=== PATIENT | male | born 1975 | race Native Hawaiian/Other Pacific Islander ===

== ENCOUNTER 2023-04-12 00:12 | Inpatient (IN) | payer MEDICAID, OTHER ==
[~2023-04-12] VITALS: Ht 167.6 cm; Wt 68.0 kg
--- NOTE | 2023-04-12 00:25 | NUR ---
Not able to assess patients mental status. MD at bedside assessing patient.Per Rescue team, patient was reccently at a different hospital and was possibly treated for sepsis, possible on antibiotic therapy. RT at bedside setting up pt to vent and assessing status. Patient with no signs of distress, quadriplegic, on vent. O2 sats at 98% All safety precautions taken
[2023-04-12] MEDS ORDERED: IV NS 0.9% 1,000 ML BAG IV ONE (00:30)
[2023-04-12] MEDS ORDERED: VANCOMYCIN 1 GM in IV D5W 250 ML IV ONE (00:30)
[2023-04-12] MEDS ORDERED: PIPERACILLIN /TAZOBACTAM 3.375 G in IV D5W 50 ML IV ONE (00:30)
--- NOTE | 2023-04-12 00:39 | NUR ---
Vent; FIO2: 35%min., Flow 50 l/min., VT 350ml, RR 12, Flow: 50 l/min, PEEP 5 cmH20, Pmax 60 cmH2O
[2023-04-12] MEDS ORDERED: PIPERACI/TAZO 3.375GM/D5W 50ML PB IV ONE (00:41)
[2023-04-12] MEDS ORDERED: ACETAMINOPHEN 650 MG/20.3 ML UDC ONE (00:43)
[2023-04-12 00:44] LABS: BASOPHILS % (AUTO) 0.1 % (0.0-2.0); EOSINOPHILS % (AUTO) 4.3 % (0.0-6.0); HEMATOCRIT 35 % (39-51); HEMOGLOBIN 11.1 g/dL (13.5-17.5); LYMPHOCYTES % (AUTO) 13.8 % (20.0-44.0); MEAN CORPUSCULAR HGB CONC 32 g/dl (31.0-36.0); MEAN CORPUSCULAR VOLUME 87 fL (80-96); MONOCYTES # (AUTO) 1.3 K/uL (0.1-1.30); MONOCYTES % (AUTO) 5.9 % (2.0-12.0); NEUTROPHILS # (AUTO) 16.3 K/uL (1.8-8.9); NEUTROPHILS % (AUTO) 75.9 % (43.0-81.0); PLATELET COUNT (AUTO) 487 K/uL (150-450); RED BLOOD CELL COUNT(AUTO) 4.02 MIL/uL (4.5-6.0); WHITE BLOOD COUNT (AUTO) 21.5 K/uL (4.3-11.0)
[2023-04-12] MEDS ORDERED: ACETAMINOPHEN 650 MG/20.3 ML UDC PO ONE (01:00)
[2023-04-12 01:06] LABS: BILIRUBIN,URINE NEGATIVE (NEGATIVE); COLOR,URINE DARK YELLOW (YELLOW); LEUKOCYTE ESTERASE ,URINE NEGATIVE (NEGATIVE); NITRITE, URINE NEGATIVE (NEGATIVE); PROTEIN,URINE 2+ mg/dl (NEGATIVE); UGLUCOSE NEGATIVE (NEGATIVE); UROBILINOGEN,URINE 0.2 EU/dL (0.2)
[2023-04-12 01:10] LABS: BACTERIA,URINE Rare /HPF (None Seen); SQUAMOUS EPITHELIAL CELL,UR Few /HPF (None Seen); WBC,URINE 0-2 /HPF (0-3)
[2023-04-12] MEDS ORDERED: VANCOMYCIN 1 GM /D5W 250 ML PB IV ONE (01:24)
[2023-04-12 01:28] LABS: ALANINE AMINOTRANSFERASE 53 U/L (12-78); ALBUMIN 2.8 g/dL (3.4-5.0); ALKALINE PHOSPHATASE 154 U/L (46-116); ASPARTATE AMINOTRANSFERASE 43 U/L (15-37); BILIRUBIN,DIRECT 0.1 mg/dL (0.0-0.2); BILIRUBIN,TOTAL 0.5 mg/dL (0.2-1.0); CALCIUM, SERUM 8.8 mg/dL (8.5-10.1); CARBON DIOXIDE 25 mmol/L (21-32); CHLORIDE 108 mmol/L (98-107); CREATININE 2.2 mg/dL (0.6-1.3); GLUCOSE 246 mg/dL (74-106); POTASSIUM 4.4 mmol/L (3.5-5.1); SODIUM SERUM 143 mmol/L (136-145); TOTAL PROTEIN, SERUM 7.7 g/dL (6.4-8.2); UREA NITROGEN, BLOOD 14 mg/dL (7-18)
--- NOTE | 2023-04-12 02:26 | NUR ---
ROOM 103
[2023-04-12] MEDS ORDERED: hydrALAZINE HCL IV 20 MG VIAL IV PRN (03:00)
--- NOTE | 2023-04-12 03:19 | NUR ---
Report given to Todd/RN, patient cleared for transfer to room# 103.
--- NOTE | 2023-04-12 03:30 | NUR ---
RN NOTE Admitted a 48y/o M pt from ED, originally from [facility], pt arrived via gurney accomapnied by 2 ED personnels. Pt is non-verbal, responsive to tactile and light pain stimuli only. Pt on mechanical vent via trach, current settings AC12, Svm968%, TV350, PEEP5, well tolerated, pt O2-sat 100%, trach secretion noted, sputum blood tinged. Suctioned prn. Pt attached to external panel monitor current reading ST HR100's. Noted pt with 99.1F temp, pt received 650mg acetaminophen in ED. Pt noted with GT in stomach, clamped, dressing in placed and secured, site clean, no s/sx of infx. Pt also with lopes catheter in placed, patent, secured, draining slightly cloudy urine, dark buddy in color, draining by gravity. Skin assessment done, noted pt with excoriation on perineal area. Pictures taken and placed in chart. HOB elevated. Safety precautions implemented at all times. Will cont poc. Addendum: 04/12/23 at 0513 by ANGELINE JENKINS RN END FINDER FORMING DEPARTMENT ADMISSION NOTE
[2023-04-12] MEDS ORDERED: GABA-532 GT (03:31)
[2023-04-12] MEDS ORDERED: SODI650T GT (03:31)
[2023-04-12] MEDS ORDERED: ENOX40DI SQ (03:31)
[2023-04-12] MEDS ORDERED: LEVE250T2 GT (03:31)
[2023-04-12] MEDS ORDERED: FAMO20TA8 GT (03:31)
[2023-04-12] MEDS ORDERED: DOCU100C36 PO (03:31)
[2023-04-12] MEDS ORDERED: SENN-261 GT (03:31)
[2023-04-12] MEDS ORDERED: BACL10TA GT (03:31)
[2023-04-12] MEDS ORDERED: OLAN5TAB3 GT (03:31)
[2023-04-12] MEDS ORDERED: IPRA3AMP23 IH ×2 (03:31→07:49)
[2023-04-12] MEDS ORDERED: HYDR-4075 GT (03:31)
[2023-04-12] MEDS ORDERED: DOXA2TAB2 GT (03:31)
[2023-04-12] MEDS ORDERED: MIDO10TA GT (03:31)
--- NOTE | 2023-04-12 03:34 | NUR ---
TRANSFERRED TO 103 UNDER ACLS , ACCOMPANIED WITH RT
--- NOTE | 2023-04-12 03:45 | NUR ---
RN NOTE Unable to obtain significant past medical history d/t patient's mental status. Family at bedside-- Ed (Son) and , per son Ed, pt had hemorrhagic stroke 4 weeks ago, trach and gtube recently placed 3 weeks ago.
[2023-04-12 04:00] VITALS: BP 121/71
[2023-04-12] MEDS ORDERED: MAGNESIUM HYDROXIDE 30 ML UDC PO PRN (06:00)
[2023-04-12] MEDS ORDERED: ONDANSETRON HCL/PF 4 MG/2 ML VIAL IVP PRN (06:00)
[2023-04-12] MEDS ORDERED: ACETAMINOPHEN 325 MG TABLET PO PRN (06:00)
[2023-04-12] MEDS ORDERED: Z GUARD REMEDY 4 OZ OINT TP PRN (06:00)
[2023-04-12] MEDS ORDERED: ZOLPIDEM TARTRATE 5 MG TABLET PO PRN (06:00)
[2023-04-12] MEDS ORDERED: MAG HYDROX/AL HYDROX/SIMETH 30 ML UDC PO PRN (06:00)
[2023-04-12 06:42] LABS: ABG BASE EXCESS -3.6 mmol/L; ABG OXYGEN SATURATION 98.9 % (92.0-98.5); ABG PCO2 30.9 mmHg (35.0-45.0); ABG PH 7.427 (7.350-7.450); ABG PO2 166.7 mmHg (75.0-100.0); AaDO2 46.9 mmHg; COHb 0.3 % (0.5-1.5); MetHb 0.4 % (0.0-1.5); O2Hb 98.2 % (94.0-97.0); SITE, ABG Left Radial
--- NOTE | 2023-04-12 07:00 | NUR ---
RN NOTE Pt remains in stable condition. No significant changes noted. VSS. Afebrile. Mech vent settings via trach well tolerated. No evidence of pain/discomfort at this time. External cardiac technologist current reading NSR90's. [place] cath in placed, patent and secured. Kept pt clean, dry and comfortable. Will endorse to am shift nurse for continuity of care.
[2023-04-12 07:09] LABS: EOSINOPHILS % (AUTO) 0.5 % (0.0-6.0); HEMATOCRIT 32 % (39-51); HEMOGLOBIN 9.9 g/dL (13.5-17.5); LYMPHOCYTES # (AUTO) 1.1 K/uL (0.8-4.8); LYMPHOCYTES % (AUTO) 7.3 % (20.0-44.0); MEAN CORPUSCULAR HGB CONC 32 g/dl (31.0-36.0); MEAN CORPUSCULAR VOLUME 88 fL (80-96); MONOCYTES # (AUTO) 1.5 K/uL (0.1-1.30); MONOCYTES % (AUTO) 9.8 % (2.0-12.0); NEUTROPHILS # (AUTO) 12.6 K/uL (1.8-8.9); NEUTROPHILS % (AUTO) 82.4 % (43.0-81.0); PLATELET COUNT (AUTO) 355 K/uL (150-450); RED BLOOD CELL COUNT(AUTO) 3.59 MIL/uL (4.5-6.0); WHITE BLOOD COUNT (AUTO) 15.3 K/uL (4.3-11.0)
[2023-04-12 07:26] LABS: ALBUMIN 2.4 g/dL (3.4-5.0); BILIRUBIN,TOTAL 0.4 mg/dL (0.2-1.0); CALCIUM, SERUM 8.4 mg/dL (8.5-10.1); CREATININE 2.2 mg/dL (0.6-1.3); MAGNESIUM 2.6 mg/dL (1.8-2.4); PHOSPHORUS 4.5 mg/dL (2.5-4.9); POTASSIUM 4.6 mmol/L (3.5-5.1); TOTAL PROTEIN, SERUM 6.7 g/dL (6.4-8.2)
[2023-04-12 07:40] LABS: THYROID STIMULATING HORMONE 1.136 uIU/mL (0.358-3.74)
[2023-04-12] MEDS ORDERED: DOCU50LI GT (07:49)
[2023-04-12] MEDS ORDERED: POLY15DR40 EACHEYE (07:49)
[2023-04-12] MEDS ORDERED: POLY17PO4 GT (07:49)
[2023-04-12] MEDS ORDERED: NUTR150016 GT (07:49)
[2023-04-12 08:00] VITALS: BP 118/82
--- NOTE | 2023-04-12 08:55 | NUR ---
WOUND CARE CONSULT: PT PRESENTS WITH DIFFUSE RASH/REDNESS TO CHEST AND BACK, SACRAL AREA OF DISCOLORATION AND RASH TO GROIN FOLDS/PERINEUM, PRESENT ON ADMISSION. RECOMMENDATIONS MADE FOR SKIN PROTECTION. DISCUSSED WITH NURSING STAFF. DEFER TO PMD FOR CHEST/BACK REDNESS. FIRST STEP LOW AIRLOSS MATTRESS IS ON ORDER. MD IN AGREEMENT WITH PLAN OF CARE. CESAR CATH NOTED.
[2023-04-12] MEDS: ALBUTEROL HALF STRENGTH 1.25 MG/3 ML VIAL.NEB NEB SCH ×3 (09:30→20:26)
[2023-04-12] MEDS: IPRATROPIUM NEB FS 0.5 MG/2.5 ML AMPUL.NEB NEB SCH ×3 (09:30→20:26)
[2023-04-12] MEDS: ACETYLCYSTEINE 10% SOLN 400 MG/4 ML VIAL NEB SCH ×2 (09:30→14:05)
[2023-04-12] MEDS: LORAZEPAM INJ 2 MG/ML VIAL IVP PRN ×2 (09:49→17:36)
[2023-04-12] MEDS: methylPREDNISolone SOD SUCC 125 MG/2ML VIAL IV SCH ×2 (09:53→16:30)
[2023-04-12] MEDS: ENOXAPARIN SODIUM 30 MG/0.3 ML DISP.SYRIN SQ SCH (09:57)
[2023-04-12] MEDS: PIPERACILLIN /TAZOBACTAM 3.375 G in IV D5W 100 ML IV SCH ×2 (10:26→16:30)
[2023-04-12] MEDS: CLOTRIMAZOLE 1% 15 GM TUBE TP SCH ×2 (10:26→16:30)
[2023-04-12] MEDS ORDERED: LORAZEPAM INJ 2 MG/ML VIAL IV ONE (11:00)
[2023-04-12] MEDS: GABAPENTIN 100 MG CAPSULE GT SCH ×3 (11:09→23:31)
[2023-04-12] MEDS: BACLOFEN (10 MG) 10 MG TABLET GT SCH ×3 (11:09→23:31)
[2023-04-12] MEDS: OLANZAPINE 5 MG TABLET GT PRN ×2 (11:09→17:53)
[2023-04-12 12:00] VITALS: BP 105/76
[2023-04-12 12:04] LABS: ABG OXYGEN SATURATION 97.2 % (92.0-98.5); ABG PH 7.173 (7.350-7.450); ABG PO2 112.9 mmHg (75.0-100.0); AaDO2 32.9 mmHg; COHb 0.3 % (0.5-1.5); MetHb 0.4 % (0.0-1.5); O2Hb 96.5 % (94.0-97.0); SITE, ABG Left Radial; VENT MODE, BG AC 12 400 +5 30%
[2023-04-12 12:07] LABS: BILIRUBIN,URINE NEGATIVE (NEGATIVE); COLOR,URINE YELLOW (YELLOW); EOSINOPHIL,URINE None Seen; LEUKOCYTE ESTERASE ,URINE NEGATIVE (NEGATIVE); NITRITE, URINE NEGATIVE (NEGATIVE); PROTEIN,URINE NEGATIVE (NEGATIVE); UGLUCOSE NEGATIVE (NEGATIVE); UROBILINOGEN,URINE 0.2 EU/dL (0.2)
[2023-04-12 12:16] LABS: BACTERIA,URINE Rare /HPF (None Seen); SQUAMOUS EPITHELIAL CELL,UR Few /HPF (None Seen); WBC,URINE 0-2 /HPF (0-3)
[2023-04-12 12:21] LABS: CREATININE, URINE 52.9 MG/DL (30.0-125.0)
[2023-04-12 16:00] VITALS: BP 96/74
[2023-04-12] MEDS: DOCUSATE SODIUM LIQ 100 MG/10 ML UDC GT SCH (16:30)
[2023-04-12] MEDS: FAMOTIDINE (20 MG) 20 MG TABLET GT SCH (16:30)
[2023-04-12] MEDS: hydrALAZINE HCL 10 MG TABLET GT PRN ×2 (17:36→19:09)
--- NOTE | 2023-04-12 18:53 | NUR ---
RN CLOSING NOTES PATIENT ON VENT A/O X0-1 OPEN EYES. PATIENT HAS CESAR, AND GT TUBE FEEDING IS HELD PER DR. KEVIN'S ORDER. PATIENT BLOOD PRESSURE FLUCTUATING, HYDRALAZINE 10 MG VIA GTUBE GIVEN EACH BEN PRN. ATIVAN 1 MG NEEDED. ALL DUE MEDS GIVEN, ALL SAFETY PRECAUTIONS IN PLACE, AT THIS MOMENT AT BEDSIDE. WILL ENDORSE THE PATIENT TO THE PM NURSE FOR ROSALINA.
[2023-04-12] MEDS: IV D5/ 0.9% NACL 1,000 ML IV PRN (19:12)
--- NOTE | 2023-04-12 19:30 | NUR ---
ELBA RN OPENING NOTE RECEIVED PATIENT IN BED, ON MECH VENT, TOLERATING SETTINGS WELL. SATING @ 99%. ON BED SIDE. PT IS NON VERBAL. PROGRAM SCHEDULE CLERK READS ST WITH HR IN 130s. BP ALSO ELEVATED. AM SHIFT NURSE GAVE HYDRALAZINE AND ATIVAN ORDERED. NO S/SX OF ACUTE RESPI DISTRTESS NOTED AT THIS TIME. PEG TUBE IN PLACE, CLAMPED. FEELING HELD AT THIS TIME PER ACCOUNT FINANCIAL MANAGER DORITA. CESAR CATH IN PLACE, DRAINING YELLOW URINE BY GRAVITY. ALL SAFETY MEASURES IN PLACE: BED LOCKED IN LOW POSTION, SR UP X 2, CALL LIGHT WITHIN REACH. WILL CONTINUE TO MONITOR PT.
[2023-04-12 20:00] VITALS: BP 161/97
[2023-04-12] MEDS: LEVETIRACETAM (250 MG) 250 MG TABLET PO SCH (20:14)
--- NOTE | 2023-04-12 20:20 | NUR ---
RN NOTE PT HR WENT DOWN TO 102 AT THIS TIME. BP ALSO WENT DOWN TO 158/75. PT LOOKED MORE CALM AND RELAXED. NO S/SX OF ACUTE RESPI DISTRESS NOTED. FAMILY ON BED SIDE. WILL CONTINUE TO MONITOR.
[2023-04-13] VITALS: BP_SYST 142; BP_SYST 158; BP_DIAS 83; BP_DIAS 99
[2023-04-13] MEDS: PIPERACILLIN /TAZOBACTAM 3.375 G in IV D5W 100 ML IV SCH ×3 (00:01→17:39)
[2023-04-13] MEDS: VANCOMYCIN 1 GM in IV D5W 250 ML IV SCH (00:13)
[2023-04-13] MEDS: IPRATROPIUM NEB FS 0.5 MG/2.5 ML AMPUL.NEB NEB SCH ×4 (01:22→20:42)
[2023-04-13] MEDS: ALBUTEROL HALF STRENGTH 1.25 MG/3 ML VIAL.NEB NEB SCH ×4 (01:22→20:42)
[2023-04-13] MEDS: ACETYLCYSTEINE 10% SOLN 400 MG/4 ML VIAL NEB SCH ×3 (01:22→15:02)
[2023-04-13] MEDS: LORAZEPAM INJ 2 MG/ML VIAL IVP PRN (01:45)
--- NOTE | 2023-04-13 01:50 | NUR ---
RN NOTE PT SHOWING SIGNS OF DISTRESS. HR IN 130s. ATIVAN GIVEN ORDERED. WILL CONTINUE TO MONITOR.
[2023-04-13] MEDS: hydrALAZINE HCL 10 MG TABLET GT PRN (02:37)
--- NOTE | 2023-04-13 02:45 | NUR ---
RN NOTE BP IS ELEVATED, HYDRALAZINE GIVEN ORDERED.
[2023-04-13 04:00] VITALS: BP 98/57
[2023-04-13] MEDS: IV D5/ 0.9% NACL 1,000 ML IV PRN (05:11)
[2023-04-13] MEDS: GABAPENTIN 100 MG CAPSULE GT SCH ×3 (05:23→17:40)
[2023-04-13] MEDS: BACLOFEN (10 MG) 10 MG TABLET GT SCH ×3 (05:23→17:41)
--- NOTE | 2023-04-13 06:11 | NUR ---
ELBA RN CLOSING NOTE PT IS CURRENTLY SR ON TELE MONITOR WITH HR IN THE 80s. NO S/SX OF ACUTE RESPI DISTRESS NOTED AT THIS TIME. VS WNL. ALL DUE MEDS GIVEN. PM CARE DONE. TURNED AND REPOSITIONED. WILL ENDORSE TO AM SHIFT NURSE FOR ROSALINA.
[2023-04-13 06:13] LABS: BASOPHILS % (AUTO) 0.1 % (0.0-2.0); EOSINOPHILS % (AUTO) 0.1 % (0.0-6.0); HEMATOCRIT 25 % (39-51); HEMOGLOBIN 8.2 g/dL (13.5-17.5); LYMPHOCYTES # (AUTO) 1.1 K/uL (0.8-4.8); LYMPHOCYTES % (AUTO) 15.6 % (20.0-44.0); MEAN CORPUSCULAR HGB CONC 33 g/dl (31.0-36.0); MEAN CORPUSCULAR VOLUME 85 fL (80-96); MONOCYTES # (AUTO) 0.7 K/uL (0.1-1.30); MONOCYTES % (AUTO) 10.9 % (2.0-12.0); NEUTROPHILS # (AUTO) 4.9 K/uL (1.8-8.9); NEUTROPHILS % (AUTO) 73.3 % (43.0-81.0); PLATELET COUNT (AUTO) 304 K/uL (150-450); RED BLOOD CELL COUNT(AUTO) 2.92 MIL/uL (4.5-6.0); WHITE BLOOD COUNT (AUTO) 6.7 K/uL (4.3-11.0)
[2023-04-13 06:37] LABS: CALCIUM, SERUM 8.2 mg/dL (8.5-10.1); MAGNESIUM 2.5 mg/dL (1.8-2.4); POTASSIUM 3.9 mmol/L (3.5-5.1)
--- NOTE | 2023-04-13 07:30 | NUR ---
ELBA RN AM NOTE RECEIVED PATIENT IN BED, OBTUNDED, WITH SHILEY TRACH TO [facility] VENT, SETTING ORDRED, AC 12 TV 350 FIO2 35% PEEP 5, BREATHING EVEN AND UNLABORED, O2 SAT 100%. SR HR 80s ON MONITOR. IV ACCESS ON LEFT AC WITH D5 NS RUNNING AT 90 ML/HR, INFILTRATED, RT FA G 20 INFILTRATED. WILL ORDER MIDLINE. PEG TUBE IN PACE, CLAMPED, CHECKED FOR PLACEMENT, 0 RESIDUAL. NPO FOR NOW. CESAR CATH IN PLACE, DRAINING YELLOW URINE BY GRAVITY. NO SKIN ISSUES. ALL SAFETY MEASURES IN PLACE: BED LOCKED IN LOW POSITION, SR UP X 2, CALL LIGHT WITHIN REACH. WILL CONTINUE TO MONITOR PT.
[2023-04-13 08:00] VITALS: BP 121/76
[2023-04-13] MEDS ORDERED: ENOXAPARIN SODIUM 40 MG/0.4 ML DISP.SYRIN SQ SCH (09:00)
[2023-04-13] MEDS: LEVETIRACETAM (250 MG) 250 MG TABLET PO SCH ×2 (09:04→21:04)
[2023-04-13] MEDS: FAMOTIDINE (20 MG) 20 MG TABLET GT SCH ×2 (09:04→17:40)
[2023-04-13] MEDS: SENNOSIDES 8.6 MG TABLET GT SCH (09:04)
[2023-04-13] MEDS: POLYETHYLENE GLYCOL 3350 17 GM POWD.PACK GT SCH (09:04)
[2023-04-13] MEDS: OLANZAPINE 5 MG TABLET GT PRN (09:04)
[2023-04-13] MEDS: methylPREDNISolone SOD SUCC 125 MG/2ML VIAL IV SCH ×2 (09:04→17:40)
[2023-04-13] MEDS: DOCUSATE SODIUM LIQ 100 MG/10 ML UDC GT SCH ×2 (09:04→17:40)
[2023-04-13] MEDS: ENOXAPARIN SODIUM 30 MG/0.3 ML DISP.SYRIN SQ SCH (09:12)
[2023-04-13] MEDS: CLOTRIMAZOLE 1% 15 GM TUBE TP SCH ×2 (09:21→17:41)
--- NOTE | 2023-04-13 09:30 | NUR ---
RN NOTES DUE MEDS GIVEN
[2023-04-13 09:54] LABS: ABG BASE EXCESS -0.8 mmol/L; ABG OXYGEN SATURATION 98.9 % (92.0-98.5); ABG PCO2 30.1 mmHg (35.0-45.0); ABG PH 7.484 (7.350-7.450); ABG PO2 148.3 mmHg (75.0-100.0); AaDO2 30.2 mmHg; COHb 0.3 % (0.5-1.5); MetHb 0.3 % (0.0-1.5); O2Hb 98.3 % (94.0-97.0); PEEP,BG 5 cm H2O; SITE, ABG Right Radial
[2023-04-13] MEDS: SODIUM BICARBONATE 650 MG TABLET GT SCH (10:50)
[2023-04-13 11:07] LABS: *ANA ANTI-CENTROMERE B AB <0.2 AI (0.0-0.9); *ANA ANTI-DNA(DS) AB, QN <1 IU/mL (0-9); *ANA ANTI-JO-1 <0.2 AI (0.0-0.9); *ANA ANTICHROMATIN ANTIBODY <0.2 AI (0.0-0.9); *ANA RNP ANTIBODIES <0.2 AI (0.0-0.9); *ANA SJOGREN'S ANTI-SS-A <0.2 AI (0.0-0.9); *ANA SJOGREN'S ANTI-SS-B <0.2 AI (0.0-0.9); *ANAANTI-SCLERODERMA-70 AB <0.2 AI (0.0-0.9); *ANASMITH AB <0.2 AI (0.0-0.9)
[2023-04-13 12:00] VITALS: BP 149/94
[2023-04-13 16:00] VITALS: BP 158/94
--- NOTE | 2023-04-13 18:47 | NUR ---
ELBA RN PM NOTE PATIENT IN BED, OBTUNDED, WITH SHILEY 8 XLT TRACH TO [facility] VENT, SETTING ORDERED, AC 12 TV 429 FIO2 30% PEEP 5, BREATHING EVEN AND UNLABORED, O2 SAT 100%. SR HR 80s ON MONITOR. IV ACCESS ON RIGHT UPPER ARM MIDLINE G18 WITH D5 NS RUNNING AT 90 ML/HR, CDI DRESSING, SITE CLEAR. PEG TUBE IN PLACE, CLAMPED, CHECKED FOR PLACEMENT, 0 RESIDUAL. NPO FOR NOW. CESAR CATH IN PLACE, DRAINING YELLOW URINE BY GRAVITY. TOTAL OUTPUT 1000 ML NO SKIN ISSUES. ALL SAFETY MEASURES IN PLACE: BED LOCKED IN LOW POSITION, SR UP X 2, CALL LIGHT WITHIN REACH. WILL ENDORSE TO NEXT SHIFT FOR ROSALINA. PM CARE DONE, TURNED AND REPOSITIONED Q 2 HOURS. SUCTION PRN
--- NOTE | 2023-04-13 19:30 | NUR ---
RN NOTES RECEIVED REPORT FROM MORNING RN. PATIENT IN BED OBTUNDED. WITH TRACH CONNECTED TO MV WITH PRESCRIBED SETTINGS NO SOB BREATHING EVEN AND UNLABORED. PEG INTACT CLAMPED. ON TELE MONITOR WITH NSR .WITH CESAR CATH CONNECTED TO URINE BAG DRAINING YELLOWISH URINE OUTPUT. WITH IV ACCESS AT MARY JO MIDLINE PATENT FLUSHES WELL RUNNING D5 NS @ 90CC/HR. ALL SAFETY MEASURES INJ PLACE HOB ELEVATED. CALL LIGHT WITHIHN REACH. WILL CLOSELY MONITOR THE PATIENT
[2023-04-13 20:00] VITALS: BP 139/93
[2023-04-14] VITALS: BP_SYST 132; BP_SYST 158; BP_DIAS 83; BP_DIAS 87
[2023-04-14] MEDS: VANCOMYCIN 1 GM in IV D5W 250 ML IV SCH (00:14)
[2023-04-14] MEDS: BACLOFEN (10 MG) 10 MG TABLET GT SCH ×5 (00:14→23:54)
[2023-04-14] MEDS: GABAPENTIN 100 MG CAPSULE GT SCH ×5 (00:14→23:54)
[2023-04-14] MEDS: ACETYLCYSTEINE 10% SOLN 400 MG/4 ML VIAL NEB SCH ×4 (02:07→23:18)
[2023-04-14] MEDS: IPRATROPIUM NEB FS 0.5 MG/2.5 ML AMPUL.NEB NEB SCH ×4 (02:08→19:28)
[2023-04-14] MEDS: ALBUTEROL HALF STRENGTH 1.25 MG/3 ML VIAL.NEB NEB SCH ×4 (02:08→19:28)
[2023-04-14] MEDS: PIPERACILLIN /TAZOBACTAM 3.375 G in IV D5W 100 ML IV SCH ×2 (02:12→09:31)
[2023-04-14] MEDS: IV D5/ 0.9% NACL 1,000 ML IV PRN ×2 (02:34→16:39)
[2023-04-14 04:00] VITALS: BP 158/85
[2023-04-14 06:47] LABS: EOSINOPHILS % (AUTO) 0.1 % (0.0-6.0); HEMATOCRIT 29 % (39-51); HEMOGLOBIN 9.5 g/dL (13.5-17.5); LYMPHOCYTES # (AUTO) 1.1 K/uL (0.8-4.8); LYMPHOCYTES % (AUTO) 14.3 % (20.0-44.0); MEAN CORPUSCULAR HGB CONC 33 g/dl (31.0-36.0); MEAN CORPUSCULAR VOLUME 86 fL (80-96); NEUTROPHILS # (AUTO) 5.5 K/uL (1.8-8.9); NEUTROPHILS % (AUTO) 72.6 % (43.0-81.0); PLATELET COUNT (AUTO) 347 K/uL (150-450); RED BLOOD CELL COUNT(AUTO) 3.37 MIL/uL (4.5-6.0); WHITE BLOOD COUNT (AUTO) 7.5 K/uL (4.3-11.0)
[2023-04-14 06:53] LABS: CALCIUM, SERUM 8.2 mg/dL (8.5-10.1); CREATININE 1.8 mg/dL (0.6-1.3); POTASSIUM 3.5 mmol/L (3.5-5.1)
--- NOTE | 2023-04-14 06:55 | NUR ---
RN NOTE PATIENT IN BED, OBTUNDED, WITH SHILEY 8 XLT TRACH TO [facility] VENT, SETTING ORDERED, AC 12 TV 429 FIO2 30% PEEP 5, BREATHING EVEN AND UNLABORED, O2 SAT 100%. SR HR 80s ON MONITOR. IV ACCESS ON RIGHT UPPER ARM MIDLINE G18 WITH D5 NS RUNNING AT 90 ML/HR, CDI DRESSING, SITE CLEAR. PEG TUBE IN PLACE, CLAMPED, CHECKED FOR PLACEMENT, 0 RESIDUAL. NPO FOR NOW. CESAR CATH IN PLACE, DRAINING YELLOW URINE BY GRAVITY. TOTAL OUTPUT 1000 ML NO SKIN ISSUES. ALL SAFETY MEASURES IN PLACE: BED LOCKED IN LOW POSITION, SR UP X 2, CALL LIGHT WITHIN REACH. WILL
--- NOTE | 2023-04-14 07:40 | NUR ---
GOGGLES ASSEMBLER OPENING NOTE RECEIVED PATIENT IN BED, OBTUNDED, WITH SHILEY 8 XLT TRACH TO [facility] VENT, SETTING ORDERED, AC 12 TV 429 FIO2 30% PEEP 5, BREATHING EVEN AND UNLABORED, O2 SAT 100%. SR HR 70'S. IV ACCESS ON RIGHT UPPER ARM MIDLINE G18 WITH D5 NS RUNNING AT 90 ML/HR, CDI DRESSING, SITE CLEAR. PEG TUBE IN PLACE, CLAMPED, CHECKED FOR PLACEMENT, 0 RESIDUAL. NPO FOR NOW. CESAR CATH IN PLACE, DRAINING YELLOW URINE BY GRAVITY. MITTEN RESTRAINT ON, CHECK FOR SKIN AND CIRCULATION PER PROTOCOL. ALL SAFETY MEASURES IN PLACE: BED LOCKED IN LOW POSITION, SR UP X 2, CALL LIGHT WITHIN REACH. PLAN OF CARE CONTINUE.
[2023-04-14 08:00] VITALS: BP 150/84
[2023-04-14] MEDS ORDERED: GLUCERNA 1.2 1,000 ML BOTTLE NG PRN (08:00)
[2023-04-14] MEDS ORDERED: MAG HYDROX/AL HYDROX/SIMETH 30 ML UDC GT PRN (08:03)
[2023-04-14] MEDS ORDERED: MAGNESIUM HYDROXIDE 30 ML UDC GT PRN (08:41)
[2023-04-14] MEDS ORDERED: ZOLPIDEM TARTRATE 5 MG TABLET GT PRN (08:41)
[2023-04-14] MEDS ORDERED: LEVETIRACETAM SOL (5 ML) 100 MG/ML UDC PO SCH (09:00)
[2023-04-14] MEDS: CLOTRIMAZOLE 1% 15 GM TUBE TP SCH ×2 (09:24→16:09)
[2023-04-14] MEDS: DOCUSATE SODIUM LIQ 100 MG/10 ML UDC GT SCH ×2 (09:31→16:33)
[2023-04-14] MEDS: LEVETIRACETAM SOL (5 ML) 100 MG/ML UDC GT SCH ×2 (09:31→20:16)
[2023-04-14] MEDS: SODIUM BICARBONATE 650 MG TABLET GT SCH (09:31)
[2023-04-14] MEDS: SENNOSIDES 8.6 MG TABLET GT SCH (09:31)
[2023-04-14] MEDS: POLYETHYLENE GLYCOL 3350 17 GM POWD.PACK GT SCH (09:31)
[2023-04-14] MEDS: methylPREDNISolone SOD SUCC 125 MG/2ML VIAL IV SCH ×2 (09:31→16:33)
[2023-04-14] MEDS: FAMOTIDINE (20 MG) 20 MG TABLET GT SCH ×2 (09:31→16:33)
[2023-04-14] MEDS: ENOXAPARIN SODIUM 30 MG/0.3 ML DISP.SYRIN SQ SCH (09:38)
[2023-04-14] MEDS ORDERED: LEVO500T90 PO (09:47)
[2023-04-14 12:00] VITALS: BP 155/89
[2023-04-14] MEDS: hydrALAZINE HCL 10 MG TABLET GT PRN ×2 (14:45→20:16)
[2023-04-14] MEDS: ACETAMINOPHEN 650 MG/20.3 ML UDC GT PRN (14:46)
--- NOTE | 2023-04-14 15:44 | NUR ---
AMBULANCE ARRIVED, NOTED PATIENT HAVING SOB, CALLED RT, SUCTIONED PATIENT, PATIENT STILL HAVING SOB, 02 SAT 99%, DR. TIAN NOTIFIED, WITH ORDER TO INFORMED BLUING OVEN TENDER FOR TRANSPORTATION.
[2023-04-14] MEDS: OLANZAPINE 5 MG TABLET GT PRN (15:52)
[2023-04-14] MEDS: LORAZEPAM INJ 2 MG/ML VIAL IVP PRN ×2 (15:52→20:07)
[2023-04-14 16:00] VITALS: BP 155/85
--- NOTE | 2023-04-14 16:07 | NUR ---
RECHECKED BP AFTER GIVING HYDRALAZINE, BP 155/85
--- NOTE | 2023-04-14 17:58 | NUR ---
FLOOR INSTALLER CLOSING NOTE PATIENT IN BED, OBTUNDED, WITH SHILEY 8 XLT TRACH TO [facility] VENT, SETTING ORDERED, AC 12 TV 429 FIO2 30% PEEP 5, BREATHING EVEN AND UNLABORED, O2 SAT 100%. SR HR 70'S. IV ACCESS ON RIGHT UPPER ARM MIDLINE G18 WITH D5 NS RUNNING AT 90 ML/HR, CDI DRESSING, SITE CLEAR. PEG TUBE IN PLACE, CHECKED FOR PLACEMENT, NO RESIDUAL NOTED. CESAR CATH IN PLACE, DRAINING YELLOW URINE BY GRAVITY. MITTEN RESTRAINT ON, CHECK FOR SKIN AND CIRCULATION PER PROTOCOL. ALL SAFETY MEASURES IN PLACE: BED LOCKED IN LOW POSITION, SR UP X 2, CALL LIGHT WITHIN REACH. WILL ENDORSE TO NIGHT NURSE FOR ROSALINA.
--- NOTE | 2023-04-14 19:30 | NUR ---
RN NOTES RECEIVED REPORT FROM MORNING RN. PATIENT IN BED OBTUNDED. WITH TRACH CONNECTED TO MV WITH PRESCRIBED SETTINGS NO SOB BREATHING EVEN AND UNLABORED. PEG INTACT CLAMPED. ON TELE MONITOR WITH NSR .WITH CESAR CATH CONNECTED TO URINE BAG DRAINING YELLOWISH URINE OUTPUT. WITH IV ACCESS AT MARY JO MIDLINE PATENT FLUSHES WELL RUNNING D5 NS @ 90CC/HR. ALL SAFETY MEASURES In PLACE HOB ELEVATED. CALL LIGHT WITHIN REACH. WILL CLOSELY MONITOR THE PATIENT. FOR POSSIBLE DISCHARGE TO [facility]
[2023-04-14 20:00] VITALS: BP 180/100
--- NOTE | 2023-04-14 20:10 | NUR ---
RN NOTES EMT WITH RT RN CAME IN TO CLINICAL EDUCATION CONSULTANT PATIENT. PATIENT NOTED TO HAVE AN EPISODE OF AGITATION AND RESTLESS. BP UP TO 180/100, HYPERVENTILATING. PRN ATIVAN AND HYDRALAZINE GIVEN. WILL RE-CHECK BP AFTER 15 MINUTES
--- NOTE | 2023-04-14 20:35 | NUR ---
RN NOTES PATIENT STILL HYPERVENTILATING AND BP 160/93. EMT REFUSED TO TAKE PATIENT. DR KEVIN MADE AWARE
[2023-04-15] VITALS: BP 132/87
[2023-04-15] MEDS: ALBUTEROL HALF STRENGTH 1.25 MG/3 ML VIAL.NEB NEB SCH ×3 (01:03→13:23)
[2023-04-15] MEDS: IPRATROPIUM NEB FS 0.5 MG/2.5 ML AMPUL.NEB NEB SCH ×3 (01:03→13:23)
[2023-04-15 04:00] VITALS: BP 167/95
[2023-04-15] MEDS: BACLOFEN (10 MG) 10 MG TABLET GT SCH ×2 (05:49→11:09)
[2023-04-15] MEDS: hydrALAZINE HCL 10 MG TABLET GT PRN ×2 (05:49→14:59)
[2023-04-15] MEDS: GABAPENTIN 100 MG CAPSULE GT SCH ×2 (05:49→11:09)
[2023-04-15] MEDS: IV D5/ 0.9% NACL 1,000 ML IV PRN ×2 (05:53→06:13)
[2023-04-15 06:09] LABS: CALCIUM, SERUM 7.8 mg/dL (8.5-10.1); CREATININE 1.6 mg/dL (0.6-1.3); POTASSIUM 3.4 mmol/L (3.5-5.1)
--- NOTE | 2023-04-15 06:43 | NUR ---
RN NOTE PATIENT IN BED, OBTUNDED, WITH SHILEY 8 XLT TRACH TO [facility] VENT, SETTING ORDERED, AC 12 TV 429 FIO2 30% PEEP 5, BREATHING EVEN AND UNLABORED, O2 SAT 100%. SR HR 80s ON MONITOR. IV ACCESS ON RIGHT UPPER ARM MIDLINE G18 WITH D5 NS RUNNING AT 90 ML/HR, CDI DRESSING, SITE CLEAR. PEG TUBE IN PLACE, CLAMPED, CHECKED FOR PLACEMENT, 0 RESIDUAL. NPO FOR NOW. CESAR CATH IN PLACE, DRAINING YELLOW URINE BY GRAVITY. TOTAL OUTPUT 1000 ML NO SKIN ISSUES. ALL SAFETY MEASURES IN PLACE: BED LOCKED IN LOW POSITION, SR UP X 2, CALL LIGHT WITHIN REACH. PATIENT HAS AN EPISODE OF ELEVATED BP PRN BP MEDS GIVEN
--- NOTE | 2023-04-15 07:22 | NUR ---
BRAID MAKER OPENING NOTE RECEIVED PATIENT IN BED, OBTUNDED, WITH SHILEY 8 XLT TRACH TO [facility] VENT, SETTING ORDERED TOLERATING WELL AT O2 SAT 100%. SR HR 66 ON MONITOR. IV ACCESS ON RIGHT UPPER ARM MIDLINE G18. G TUBE IN PLACE, NO RESIDUAL NOTED AT THIS TIME. CESAR CATH IN PLACE, DRAINING YELLOW, PINK COLORED URINE BY GRAVITY. ALL SAFETY MEASURES IN PLACE: BED LOCKED IN LOW POSITION, SR UP X 2, CALL LIGHT WITHIN REACH.BED ALARM ON
[2023-04-15] MEDS: ACETYLCYSTEINE 10% SOLN 400 MG/4 ML VIAL NEB SCH ×2 (07:54→15:44)
[2023-04-15 08:00] VITALS: BP 135/89
[2023-04-15] MEDS: DOCUSATE SODIUM LIQ 100 MG/10 ML UDC GT SCH (08:21)
[2023-04-15] MEDS: POLYETHYLENE GLYCOL 3350 17 GM POWD.PACK GT SCH (08:21)
[2023-04-15] MEDS: SENNOSIDES 8.6 MG TABLET GT SCH (08:21)
[2023-04-15] MEDS: LEVETIRACETAM SOL (5 ML) 100 MG/ML UDC GT SCH (08:39)
[2023-04-15] MEDS: methylPREDNISolone SOD SUCC 125 MG/2ML VIAL IV SCH (08:39)
[2023-04-15] MEDS: FAMOTIDINE (20 MG) 20 MG TABLET GT SCH (08:39)
[2023-04-15] MEDS: ENOXAPARIN SODIUM 30 MG/0.3 ML DISP.SYRIN SQ SCH (08:42)
[2023-04-15] MEDS: SODIUM BICARBONATE 650 MG TABLET GT SCH (08:57)
[2023-04-15] MEDS: OLANZAPINE 5 MG TABLET GT PRN (09:08)
--- NOTE | 2023-04-15 10:00 | NUR ---
RN NOTE GAVE REPORT TO VONDA AT [facility] [phone]
[2023-04-15] MEDS: ACETAMINOPHEN 650 MG/20.3 ML UDC GT PRN (11:09)
[2023-04-15 12:00] VITALS: BP 139/96
[2023-04-15] MEDS ORDERED: POTASSIUM CL. PREMIX PERIPHER. 50 ML IV SCH (12:00)
[2023-04-15] MEDS ORDERED: LORAZEPAM INJ 2 MG/ML VIAL IV ONE ×2 (14:00→15:00)
[2023-04-15 14:59] VITALS: BP 172/118
[2023-04-15] MEDS: CLOTRIMAZOLE 1% 15 GM TUBE TP SCH (15:30)
--- NOTE | 2023-04-15 16:23 | NUR ---
PSYCHOLOGICAL AIDE NOTE PT LEFT IN STABLE CONDITION. PT ON TRACH WITH ORDERED SETTINGS TOLERATING WELL. KEPT CESAR CATHETHER AND KEPT MIDLINE IN. WENT OVER DISCHARGE INSTRUCTIONS TO AMBULANCE TEAM. REMOVED TELE MONITOR BOX. PT PICKED UP AMBULANCE TEAM ACCOMPANIED BY RESPIRATORY THERAPIST. PICKED UP AND DISCHARGED TO [facility]. PT HAD NO BELONGINGS SINCE ADMISSION. FAMILY AWARE OF DISCHARGE
== END 2023-04-15 17:09 | DRG 720 ==
LOC: ER 00:15 → TELE1 02:28 → TELE-TD 06:29 → TELE1 04-13 17:27
PROVIDERS: ADMIT Internal Medicine; ATTEND Internal Medicine
PROC: 5A1945Z Respiratory Ventilation, 24-96 Consecutive Hours (ICD-10-PCS; principal; 2023-04-12)
PROC: 05HB33Z Insertion of Infusion Device into Right Basilic Vein, Percutaneous Approach (ICD-10-PCS; 2023-04-13)
DX: A41.9 Sepsis, unspecified organism (principal); N17.0 Acute kidney failure with tubular necrosis; R53.2 Functional quadriplegia; E46 Unspecified protein-calorie malnutrition; D68.59 Other primary thrombophilia; E83.41 Hypermagnesemia; E88.09 Other disorders of plasma-protein metabolism, not elsewhere classified; I47.1 Supraventricular tachycardia; Z99.11 Dependence on respirator [ventilator] status; Z93.0 Tracheostomy status; J96.10 Chronic respiratory failure, unspecified whether with hypoxia or hypercapnia; Z86.73 Personal history of transient ischemic attack (TIA), and cerebral infarction without residual deficits; E11.22 Type 2 diabetes mellitus with diabetic chronic kidney disease; I12.9 Hypertensive chronic kidney disease with stage 1 through stage 4 chronic kidney disease, or unspecified chronic kidney disease; N18.9 Chronic kidney disease, unspecified; Z20.822 Contact with and (suspected) exposure to COVID-19; Z93.1 Gastrostomy status; R13.10 Dysphagia, unspecified; Z79.51 Long term (current) use of inhaled steroids; Z79.01 Long term (current) use of anticoagulants; Z79.899 Other long term (current) drug therapy; Z74.09 Other reduced mobility; E86.1 Hypovolemia
CPT/HCPCS: 31720; 36415; 36600; 71045-TC; 76770-TC; 80048-TC; 80053-TC; 80061-TC; 80076-TC; 80202-TC; 81001; 82570-TC; 82962-TC; 83605-TC; 83735-TC; 84100-TC; 84300-TC; 84443-TC; 84484-TC; 85025-TC; 85730-TC; 86225; 86235; 86706; 86803; 87040-TC; 87081-TC; 87086-TC; 93307-TC; 94003-TC; 94760-TC; 94762-TC; 94799-TC; 99082-TC; A4223; A4623; G0378; J0360; J1650; J1953; J2060; J2543; J2930; J3370; J3480; J7030; J7040; J7042; J7050; J7060